=== PATIENT | male | born 1950 | race Caucasian/White ===

== ENCOUNTER 2019-06-28 12:31 | Inpatient (IN) ==
--- NOTE | 2019-06-28 13:22 | PROVIDER DOCUMENTATION ---
HPI-Musculoskeletal Pain/Inj - GENERAL Chief Complaint: Fall Stated Complaint: FALL, SOB, FEVER Time Seen by Provider: 06/28/19 12:49 Source: patient - HX OF PRESENT ILLNESS-MUSKULOSKELTAL Nature of Presenting Problem: THis is a 69 yo male who presents via EMS after falling. He states he was trying to sit down, he missed the chair and fell to the ground, landing on his right hip. He c/o constant post R.thigh pain and R. groin & thigh pain on movement. He was unable to bear weight after the fall. EMS reports fever 101.6 , with a hx of cough for 5-7 days. Pt states family members have been diagnosed with the flu this week. Quality of Pain: reports: cramping, sharp, throbbing Severity in ED: moderate Onset/Duration: just prior to arrival (after fall.) Timing: still present, constant (pain radiates to right groin and entire thigh with movement), other Modifying Factors: improves with: movement, palpation Any recent injury?: No Locality of Occurance: Home Similar Symptoms Previously?: No Recently seen or treated by another doctor?: No - FALL INJURY Location of Pain/Injury: reports: lower extremity Pain Radiation: reports: groin Reason for Fall: reports: other (missed the chair) Symptoms prior to fall:: reports: none Loss of Consciousness: no loss of consciousness Injury Associated Symptoms: reports: unable to bear weight, trouble walking - LOWER EXTREMITY PAIN/INJURY Context / Method of Injury: reports: fell Review of Systems - Adult - REVIEW OF SYSTEMS - ADULT Constitutional: reports: fever Eyes: reports: no symptoms reported Ears, Nose, Mouth & Throat: reports: no symptoms reported Cardiovascular: reports: no symptoms reported. denies: chest pain, edema, heart murmur, irregular heart rate, palpitations, syncope Respiratory: reports: cough. denies: hemoptysis, shortness of breath, wheezing Gastrointestinal: reports: no symptoms reported. denies: abdominal pain, diarrhea, nausea, rectal bleeding, vomiting Genitourinary: reports: no symptoms reported Musculoskeletal: reports: see HPI Integumentary: reports: skin sores/ulcer (abrasion knee.), other (ecchymosis below knee.) Neurological: denies: dizziness/vertigo, slurred speech, syncope Psychiatric: reports: no symptoms reported Endocrine: reports: no symptoms reported Hematologic/Lymphatic: reports: no symptoms reported Allergic/Immunologic: reports: no symptoms reported All Other Systems: Reviewed and Negative Past History - Adult - PAST MEDICAL HISTORY-ADULT Review of Records: reports: Old Records Reviewed, Nursing Assessment Review, Medications Reviewed, Social history reviewed & non-contributory. Major Childhood Illnesses: reports: denies history Cardiovascular: reports: denies history Respiratory: reports: denies history Gastrointestinal: reports: denies history Obstetrical/Gynecological: reports: denies history Genitourinary: reports: denies history Musculoskeletal: reports: denies history Neurological: reports: denies history Endocrine/Immune: reports: denies history Other Conditions: reports: denies history - IMMUNIZATION STATUS Childhood Immunizations: See Nurse Assessment Flu Vaccine: See Nurse Assessment - FAMILY HISTORY Family History: reviewed, not pertinent - SOCIAL HISTORY Smoking: denies Substance Use: none/never Alcohol Use Frequency: never Physical Exam-Injury Related - Physical Exam-Injury Related Initial Vital Signs Reviewed: Yes General Appearance: alert, no apparent distress, cachetic Eyes: PERRL/EOMI. negative: conjuctival exudate, sclera injected, scleral icterus, subconjunctival hemorrhage Head, Ears, Nose, Mouth & Throat: normocephalic/atraumatic, moist mucous membranes Neck: non-tender, supple. negative: C-spine tenderness, trachial deviation, tender lateral, tender midline Respiratory: decreased breath sounds, rhonchi (bases). negative: accessory muscle use, wheezing, pain on inspiration, tenderness Cardiovascular: normal peripheral pulses, regular rate, rhythm. negative: no edema, no JVD, no murmur Abdominal Exam: normal bowel sounds, non tender, soft. negative: no organomegaly, distended Back Exam: no CVA tenderness, no vertebral tenderness Extremity: tenderness (R, thigh TTP) Integumentary: warm/dry, abrasion (R. knee). negative: diaphoresis, rash, warm Progress - PLAN OF CARE/RESULTS Progress/Plan/Lab Results: Vital Signs - 8 hr 06/28/19 12:40 Temperature 100 F H Pulse Rate 100 H Respiratory Rate 24 Blood Pressure 156/84 O2 Sat by Pulse Oximetry 95 06/28/19 12:50 Influenza Screen - Final Nasopharyngeal Laboratory Results - last 24 hr 06/28/19 06/28/19 06/28/19 12:50 12:50 12:50 WBC 8.42 RBC 4.65 L Hgb 13.7 L Hct 40.1 L MCV 86.2 MCH 29.5 MCHC 34.2 RDW Std Deviation 12.4 Plt Count 186 MPV 10.8 H Sodium 122 L Potassium 5.3 H Chloride 84 L Carbon Dioxide 19 L Anion Gap 19 BUN 20 Creatinine 1.9 H Estimated GFR/1.73 m2 35 BUN/Creatinine Ratio 11 Glucose 95 Calculated Osmolality 248 Calcium 9.7 Magnesium 1.6 Total Bilirubin 0.44 AST 48 H ALT 31 Alkaline Phosphatase 48 Total Protein 9.0 H Albumin 4.5 Globulin 4.5 Albumin/Globulin Ratio 1.0 Plasma Lactate 2.5 H Orders Category Date Time Status Cardiac Monitoring NOW Care 06/28/19 14:30 Active Marcus Cath Insertion ORDERED Care 06/28/19 14:44 Active IV Insertion NOW Care 06/28/19 14:30 Active NEWS Score 2-4:Order NEWS Lactate Series NOW Care 06/28/19 13:03 Active Notify Provider of NEWS Score NOW Care 06/28/19 14:30 Active CHEST-1 VIEW [RAD] Routine Exams 06/29/19 06:00 Ordered FEMUR MIN 2 VIEWS RIGHT [RAD] Stat Exams 06/28/19 13:35 Completed HIP W/PELVIS BILAT 2 VIEWS [RAD] Stat Exams 06/28/19 13:35 Completed BLOOD CULTURE [BLDCUL] Stat Lab 06/28/19 14:30 Uncollected CBC WITH NO DIFF [HEME] Stat Lab 06/28/19 12:50 Completed CK PROFILE [SP CHEM] Stat Lab 06/28/19 12:50 Received COMPREHENSIVE METABOLIC PANEL [CHEM] Stat Lab 06/28/19 12:50 Completed INFLUENZA SCREEN A/B Stat Lab 06/28/19 12:50 Completed LACTATE, PLASMA [CHEM] Lab 06/28/19 16:15 Uncollected LACTATE, PLASMA [CHEM] Lab 06/28/19 19:15 Uncollected LACTATE, PLASMA [CHEM] Q3H Lab 06/28/19 12:50 Completed MAGNESIUM [CHEM] Stat Lab 06/28/19 12:50 Completed PROTIME WITH INR [COAG] Stat Lab 06/28/19 12:50 Received PTT [COAG] Stat Lab 06/28/19 12:50 Received TROPONIN T HIGH SENSITIVITY Stat Lab 06/28/19 12:50 Received 0.9% Sodium Chloride Inj [Ns] 1,000 ml Med 06/28/19 14:45 Active IV 75 mls/hr 0.9% Sodium Chloride Inj [Ns] 1,000 ml Med 06/28/19 14:43 Active IV 999 mls/hr O2 Per Protocol Stat Oth 06/28/19 14:30 Completed EKG [EKG] Stat Ther 06/28/19 13:11 Ordered Transfer/Admit Order [TRANSFER] Routine Transfer 06/28/19 14:53 Ordered Result Diagrams: 06/28/19 12:50 06/28/19 12:50 - XRAY 1 XRAY Study: Hip (EXAM: HIP W/PELVIS BILAT 2 VIEWS 06/28/2019 HISTORY: fall, pain TECHNIQUE: AP pelvis and bilateral hips four views COMMENT: There is a fracture of the right femoral neck. There is an apparent bone island in the inferior left femoral head. There is generalized osteopenia. IMPRESSION: Fracture right femoral neck. Electronically signed by Armaan Felix 06/28/2019 2:26 PM) 2 XRAY Study: Femur (EXAM: FEMUR MIN 2 VIEWS RIGHT 06/28/2019 HISTORY: fall, pain TECHNIQUE: Right femur two views COMMENT: There is extensive arteriosclerosis. There is no evidence of fracture in the distal femur. IMPRESSION: No additional bony abnormality. Electronically signed by Armaan Felix 06/28/2019 2:27 PM) - CONSULTS/PCP/HOSPITALIST Notification #1 *Consult/PCP/Hospitalist*: Dr Kern Time Discussed: 14:48 (Admit to hospitalist and consult ortho) Reason/Comments: R. femoral neck fracture Consult Disposition: other #2 Consult: NELLA Dupree for hospitalists Time Discussed: 14:51 Consult Disposition: Will see in ED, Admit Departure - Departure Date of Disposition Decision: 06/28/19 Time of Disposition Decision: 14:52 DIAGNOSIS: Influenza A, KEMAR (acute kidney injury), Fracture of femoral neck, right, Hyponatremia Disposition: ADMITTED INPATIENT 09 Certified Medical Emergency: Emergent Condition: Stable Referrals and Follow-Ups: None,PCP [Primary Care Provider] - - Critical Care Note This patient required my direct & personal management of CC.: No Attestation - Physician/ BANG Attestation Patient care was provided by Advanced Practice Provider:: Yes Advanced Practice Provider:: Slaten,Jaky J. Advanced Practice Provider documentation review:: The Mid-level provider doc umentation, treatment plan and medical decision making was reviewed by the physician who agrees with all treatment and medical decision making by the MLP. The physician spent face to face time with patient:: No Advanced Practice Provider documentation review:: Supervising physician onsite and consulted in the evaluation and care of this patient. The physician did not have a face to face encounter with the patient.
[2019-06-28 14:06] LABS: HEMATOCRIT 40.1 % (42.0-52.0); HEMOGLOBIN 13.7 g/dL (14.0-18.0); MCH 29.5 PG (27-31); MCHC 34.2 g/dL (33-37); MCV 86.2 FL (81-99); MPV 10.8 FL (7.4-10.4); RBC 4.65 XMIL (4.7-6.1); RDW 12.4 % (11.5-14.5); WBC 8.42 X1000 (4.8-10.8)
[2019-06-28 14:21] LABS: ALBUMIN 4.5 g/dL (3.5-5.0); CALCIUM 9.7 mg/dL (8.8-10.2); CREATININE 1.9 mg/dL (0.7-1.2); MAGNESIUM 1.6 mg/dL (1.5-2.7); POTASSIUM 5.3 mmol/L (3.5-5.1); TOTAL BILIRUBIN 0.44 mg/dL (0.20-1.00)
--- NOTE | 2019-06-28 14:28 | Diag Imaging Result Doc PS360 ---
EXAM: HIP W/PELVIS BILAT 2 VIEWS 06/28/2019 HISTORY: fall, pain TECHNIQUE: AP pelvis and bilateral hips four views COMMENT: There is a fracture of the right femoral neck. There is an apparent bone island in the inferior left femoral head. There is generalized osteopenia. IMPRESSION: Fracture right femoral neck. Electronically signed by Armaan Felix 06/28/2019 2:26 PM
--- NOTE | 2019-06-28 14:29 | Diag Imaging Result Doc PS360 ---
EXAM: FEMUR MIN 2 VIEWS RIGHT 06/28/2019 HISTORY: fall, pain TECHNIQUE: Right femur two views COMMENT: There is extensive arteriosclerosis. There is no evidence of fracture in the distal femur. IMPRESSION: No additional bony abnormality. Electronically signed by Armaan Felix 06/28/2019 2:27 PM
[2019-06-28] MEDS ORDERED: NS 1,000 ML IV ONE (14:43)
--- NOTE | 2019-06-28 14:45 | ED EKG INTERP ---
This chart was entered by Mandie Vail Scribe, acting as scribe for Sera Bellamy MD. EKG Interpretation - EKG Time of EKG reading by physician:: 14:28 EKG Read and Signed by:: Sera Bellamy EKG Interpretation (*Must complete 3 of following elements*): Abnormal Rate: 90 Rhythm: NSR [place]: normal [place] Interval: normal Comments: nonspecific ST abnormality Attestation - Physician/ BANG Attestation Patient care was provided by Advanced Practice Provider:: Yes Advanced Practice Provider:: Jaky Reina Advanced Practice Provider documentation review:: The Mid-level provider documentation, treatment plan and medical decision making was reviewed by the physician who agrees with all treatment and medical decision making by the MLP. The physician spent face to face time with patient:: No Advanced Practice Provider documentation review:: Supervising physician onsite and consulted in the evaluation and care of this patient. The physician did not have a face to face encounter with the patient. This chart was documented by the indicated scribe, (Mandie Vail Scribe) and accurately reflects the services I performed and decisions made by me, Sera Bellamy MD, as attested by the provider's signature.
[2019-06-28 15:09] LABS: INR 1.07; PROTIME 14.1 Seconds (11.0-16.0)
[2019-06-28 15:10] LABS: PTT 32.8 Seconds (22.3-41.8)
--- NOTE | 2019-06-28 15:15 | EKG Report ---
Test Performed on : 06/28/2019 2:28:26 PM Test Reason : SOB Blood Pressure : / mmHG Vent. Rate : 090 BPM Atrial Rate : 090 BPM P-R Int : 138 ms QRS Dur : 076 ms QT Int : 330 ms P-R-T Axes : 112 045 063 degrees QTc Int : 403 ms Normal sinus rhythm. Nonspecific ST abnormality Abnormal ECG No previous ECGs available Unconfirmed Result
[2019-06-28] MEDS ORDERED: ZOFRAN IV PRN (15:52)
[2019-06-28] MEDS ORDERED: TYLENOL PO PRN (15:52)
[2019-06-28 15:58] LABS: URINE SOURCE CATH
[2019-06-28 16:01] LABS: BILIRUBIN URINE NEGATIVE (NEGATIVE); BLOOD URINE MODERATE (NEGATIVE); COLOR YELLOW; GLUCOSE URINE 500 mg/dL (NEGATIVE); KETONE URINE 10 mg/dL (NEGATIVE); LEUKOCYTES URINE NEGATIVE (NEGATIVE); NITRITE URINE NEGATIVE (NEGATIVE); PH URINE 5.5; PROTEIN URINE 200 mg/dL (NEGATIVE); SP GRAVITY URINE 1.017; TURBIDITY URINE HAZY (CLEAR); UROBILINOGEN URINE NORMAL (NORMAL)
[2019-06-28] MEDS ORDERED: NS 500 ML IV ONE (16:06)
[2019-06-28 16:22] LABS: UR EPITHELIAL CELLS <10 /HPF (<10); URINE BACTERIA NEGATIVE /HPF; URINE CASTS GRANULAR PRESENT; URINE CRYSTALS NONE SEEN; URINE RBC <10 /HPF (<10); URINE SMALL ROUND CELLS NONE SEEN; URINE WBC <10 /HPF (<10); URINE YEAST NONE SEEN
[2019-06-28] MEDS ORDERED: KEFZOL 2 GM/D5W 2 GM/50 ML IVPB IV ONE (16:51)
[2019-06-28 17:14] LABS: INR 1.18; PROTIME 15.2 Seconds (11.0-16.0)
--- NOTE | 2019-06-28 17:17 | ORTHOPAEDICS CONSULTATION ---
DATE: 06/28/2019 CHIEF COMPLAINT: Right hip pain after fall. HISTORY OF PRESENT ILLNESS: This is a 69-year-old male who presented to the emergency department from EMS due to a fall and right hip pain. He reports that he was trying to sit down in a chair, missed the chair, and landed on his hip. He was unable to bear weight after the fall. He reported having a fever, not feeling good for roughly a week. Family members have been diagnosed with the flu. Flu testing from the emergency department does show positive flu. Orthopedist was consulted to come see the patient. PAST MEDICAL HISTORY: Includes restless legs, hypertension, GERD, hyperlipidemia. The patient does report only having 1 kidney. PAST SURGICAL HISTORY: Patient is unable to recall at this time. REVIEW OF SYSTEMS: Twelve point review of systems were performed. Pertinent positives listed in the HPI. PHYSICAL EXAMINATION: Vital Signs: Temperature 100.0 degrees, respiratory rate 24, blood pressure 156/84, oxygen saturation 95% on room air, pulse rate 100. General: The patient is awake and somewhat confused, lying in the bed. HEENT: Head is atraumatic, normocephalic. Eyes equal, round. Neck: Supple. Chest: There is equal chest expansion, rise and fall. Cardiovascular: There is some tachycardia. Abdomen: Soft, nontender. Extremities: Lower extremity exam: Right lower extremity, there is some shortening about the right lower extremity. There is some swelling about the right hip. There is tenderness to the anterior joint line of the hip. There is good sensation. The patient can move his foot up and down with dorsi and plantar flexion without difficulty. There are good pedal pulses that are bounding. There is good capillary refill in the toes. MEDICATIONS: Requip 0.5 mg at bedtime, tizanidine 4 mg t.i.d. p.r.n., Lotrel 5/40 daily, gabapentin 600 mg t.i.d., Mobic 15 mg daily, omeprazole 40 mg daily, pravastatin 40 mg daily. SOCIAL HISTORY: The patient denies smoking, alcohol, or drug use. LABS: White blood cells 8.42, red blood cells 4.65, hemoglobin 13.7, hematocrit 40.1. INR 1.07. Sodium 122, potassium 5.3, chloride 84, carbon dioxide 19, BUN 20, creatinine 1.9. Troponin 21. Plasma is 2.5. Urine shows glucose of 500 and moderate blood with positive ketones. ASSESSMENT: Right femoral neck fracture. PLAN: We plan to do a bipolar hip replacement on Mr. Powell tomorrow morning if he is cleared medically. We went over risks and benefits of surgery. The patient agrees with this plan. Dr. Kern will come by and see the patient before surgery. He is to be NPO at midnight. Dictated by NELLA Craft for Arun Kern MD cc: NELLA Craft MD
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
[2019-06-28] MEDS: TAMIFLU PO SCH ×2 (17:42→22:09)
[2019-06-28] MEDS: NS 1,000 ML IV SCH (17:43)
[2019-06-28] MEDS ORDERED: TAMIFLU PO SCH (21:00)
[2019-06-29 06:49] LABS: BASO# 0.01 X1000 (0.0-0.2); BASO% 0.1 % (0.0-0.8); HEMATOCRIT 38.7 % (42.0-52.0); HEMOGLOBIN 13.7 g/dL (14.0-18.0); LYMPH# 0.94 X1000 (1.2-3.4); LYMPH% 11.3 % (20.5-51.1); MCH 30.5 PG (27-31); MCHC 35.4 g/dL (33-37); MCV 86.2 FL (81-99); MONO# 1.42 X1000 (0.11-0.59); MONO% 17.1 % (1.7-9.3); MPV 10.4 FL (7.4-10.4); PLT 150 X1000 (130-400); RBC 4.49 XMIL (4.7-6.1); RDW 12.2 % (11.5-14.5)
[2019-06-29 07:23] LABS: ALBUMIN 4.1 g/dL (3.5-5.0); CALCIUM 9.3 mg/dL (8.8-10.2); CREATININE 1.2 mg/dL (0.7-1.2); MAGNESIUM 1.7 mg/dL (1.5-2.7); POTASSIUM 4.2 mmol/L (3.5-5.1); TOTAL BILIRUBIN 0.45 mg/dL (0.20-1.00); TOTAL PROTEIN 8.3 g/dL (6.3-8.3)
[2019-06-29 07:24] LABS: LYMPHS 6 % (21-51); MONO 10 % (1-9); SEGS 74 % (42-75)
--- NOTE | 2019-06-29 07:30 | Diag Imaging Result Doc PS360 ---
EXAM: CHEST-1 VIEW INDICATION: cough, fever TECHNIQUE: One view COMPARISON: 12/15/2018 FINDINGS: There is evidence of prior granulomatous disease, stable. The lungs are grossly clear. There is no discrete pleural fluid collection or pneumothorax. The cardiomediastinal silhouette and central vasculature are grossly unremarkable. IMPRESSION: No evidence of acute pathology by plain radiograph. Electronically signed by Chacorta Paredes 06/29/2019 7:28 AM
[2019-06-29] MEDS ORDERED: SAMSCA PO ONE (09:08)
[2019-06-29] MEDS ORDERED: DILAUDID IV PRN (09:33)
[2019-06-29] MEDS: TAMIFLU PO SCH ×2 (09:39→20:42)
--- NOTE | 2019-06-29 10:32 | PROGRESS NOTE ---
DATE: 06/29/2019 SUBJECTIVE: Patient is still complaining of pain in the right hip. Denies any other complaints. OBJECTIVE: Vital Signs: Temperature 98.3 degrees, heart rate 86, respiratory rate 16, blood pressure 143/69, O2 saturation 97% on room. General examination: This is a chronically ill- looking, 69-year-old male, lying in bed, in no acute distress. Cardiovascular Exam: S1, S2 heard. No murmurs, gallops, or rubs. Regular rate and rhythm. Respiratory Exam: Clear bilaterally to auscultation. No work of breathing or using accessory muscles. Abdomen: Soft, nontender to palpation. Bowel sounds present. No organomegaly. Extremities: No clubbing, cyanosis, or edema. Peripheral pulses present in both legs. Neurological Exam: Patient is alert and oriented x3. Moves 4 extremities. LABORATORY DATA: Reviewed. ASSESSMENT AND PLAN: 1. Status post fall with right femoral neck fracture. The patient has been placed on n.p.o for surgery today. Orthopedics following this patient. 2. Influenza A positive. Will provide Tamiflu for 5 days oral twice daily. 3. Acute kidney injury. The patient has a solitary kidney in the left side. Renal function is completely normal today. I think that has been related to dehydration. 4. Hyponatremia most likely secondary to beer potomania. The patient has been provided with IV fluids and I will provide 1 dose of Samsca. Will check BMP tomorrow. 5. Hypertension. Blood pressure is under control. Will continue with same management. 6. Restless legs syndrome. We will restart home medication as soon as the patient is back from surgery. 7. Disposition. Will continue to follow up lead from Orthopedics. cc: Rafael Capellan MD
[2019-06-29] MEDS ORDERED: DURAMORPH ONE (11:25)
[2019-06-29] MEDS ORDERED: SODIUM CHLORIDE 0.9% ONE (11:26)
[2019-06-29] MEDS ORDERED: CYKLOKAPRON 1,000 MG/NS 1,000 MG/100 ML IVPB ONE (11:26)
[2019-06-29] MEDS ORDERED: TORADOL ONE (11:26)
[2019-06-29] MEDS ORDERED: MARCAINE 0.25% PF ONE (11:26)
[2019-06-29] MEDS ORDERED: EXPAREL 1.3% ONE (11:26)
[2019-06-29] MEDS ORDERED: NEOSPORIN G.U. IRRIGANT ONE (11:27)
[2019-06-29] MEDS ORDERED: KETAMINE ONE (11:44)
[2019-06-29] MEDS ORDERED: VERSED ONE (11:44)
[2019-06-29] MEDS ORDERED: FENTANYL ONE (11:44)
[2019-06-29] MEDS ORDERED: KEFZOL 1 GM/D5W 2 GM/100 ML IVPB ONE (11:50)
[2019-06-29] MEDS ORDERED: DIPRIVAN 1% ONE (12:15)
[2019-06-29] MEDS ORDERED: ZOFRAN ONE (12:33)
[2019-06-29] MEDS ORDERED: OFIRMEV 1000 MG/ISOTONIC SOLN 1,000 MG/100 ML BOTTLE ONE (12:33)
[2019-06-29] MEDS ORDERED: DECADRON ONE (12:33)
[2019-06-29] MEDS ORDERED: XYLOCAINE-MPF 2% ONE (12:33)
[2019-06-29] MEDS ORDERED: ULTRAM PO PRN (14:35)
--- NOTE | 2019-06-29 14:40 | OPERATIVE NOTE ---
PROCEDURE DATE: 06/29/2019 PREOPERATIVE DIAGNOSIS: Right displaced femoral neck fracture. POSTOPERATIVE DIAGNOSIS: Right displaced femoral neck fracture. PROCEDURE: Right bipolar hemiarthroplasty using a DePuy size 7 high offset stem with a +1.5 neck length, 48 mm bipolar head. ANESTHESIA: Spinal. SURGEON: Arun Kern MD. SPINE SPECIALIST: Jaky CARMEN is present throughout the case. The communications assistant was critical for successful completion of case. BLOOD LOSS: Minimal. DESCRIPTION OF PROCEDURE: Patient brought to the operative suite and placed in supine position. After successful administration of spinal anesthesia, the patient was placed on the OSI table in the usual position for right hip. The right hip was prepped and draped in usual sterile fashion. A longitudinal incision was made beginning 3 cm distal and 3 cm lateral to the anterior superior iliac spine, extending distally and slightly laterally 8 cm, dissected sharply through skin and subcutaneous tissue, down tensor fascia. Tensor fascia was incised and dissected bluntly down deep tensor fascia. The tensor fascia was incised. The circumflex vessels electrocauterized exposing the anterior capsule. T capsulotomy was performed exposing the femoral neck. Femoral neck cut was made with oscillating saw. The femoral head was removed with power corkscrew was measured 48 mm. A 48 mm trial was found to be excellent fit. The trial was then removed. Attention was directed to the femur was externally rotated, extended, adducted, and elevated out of the wound with the hook on the OSI bed. The lateral neck was rongeured. The canal was serially broached to a size 7. A size 7 high offset +1.5 inch neck length was trialed with a 48 mm bipolar head was found to be excellent fit and fill of the stem, offset and leg length. The trial was then removed. Definitive stem was seated onto the femur and then the bipolar head with the +1.5, 28 mm head was placed onto the Elizondo taper and then the hip was reduced and it was again found to be in excellent position. The anterior capsule was repaired with 0 V-Loc. The hip was copiously irrigated with normal saline containing irrigant and Vashe irrigation. The hip was then copiously infiltrated with Exparel, including the posterior capsule, anterior capsule, intermuscular, and subcutaneous tissue. The tensor fascia was closed with 0 V-Loc. Skin edges approximated with 2-0 Vicryl and closed with 4-0 Monocryl and Prineo dressing. The patient tolerated the procedure well without complications. At the end of the procedure, all counts correct x2. The patient was transferred to the recovery room in stable condition. cc: Arun Kern MD [facility]
[2019-06-29] MEDS ORDERED: ZOFRAN ODT PO PRN (14:45)
[2019-06-29] MEDS ORDERED: ZOFRAN IV PRN (14:45)
[2019-06-29] MEDS ORDERED: MORPHINE IV PRN ×3 (14:45)
[2019-06-29] MEDS: NS 1,000 ML IV SCH ×2 (14:45→20:50)
[2019-06-29] MEDS ORDERED: MILK OF MAGNESIA PO PRN (14:45)
[2019-06-29] MEDS ORDERED: OXY IR PO PRN ×2 (14:45)
[2019-06-29] MEDS: TYLENOL PO SCH (18:01)
[2019-06-29] MEDS: COLACE PO SCH (20:42)
[2019-06-29] MEDS: KEFZOL 1 GM/D5W 1 GM/50 ML IVPB IV SCH (20:49)
[2019-06-30] MEDS: TYLENOL PO SCH ×5 (01:44→18:07)
[2019-06-30] MEDS: NS 1,000 ML IV SCH ×3 (01:44→13:41)
[2019-06-30] MEDS: LOVENOX SUBQ SCH (05:31)
[2019-06-30] MEDS: KEFZOL 1 GM/D5W 1 GM/50 ML IVPB IV SCH (05:31)
[2019-06-30 06:59] LABS: HEMATOCRIT 34.8 % (42.0-52.0); HEMOGLOBIN 12.2 g/dL (14.0-18.0); MCH 30.7 PG (27-31); MCHC 35.1 g/dL (33-37); MCV 87.4 FL (81-99); MPV 10.9 FL (7.4-10.4); RBC 3.98 XMIL (4.7-6.1); RDW 12.6 % (11.5-14.5); WBC 13.78 X1000 (4.8-10.8)
[2019-06-30 07:45] LABS: ALBUMIN 3.9 g/dL (3.5-5.0); CALCIUM 9.3 mg/dL (8.8-10.2); CREATININE 1.4 mg/dL (0.7-1.2); PHOSPHORUS 3.2 mg/dL (2.7-4.5); POTASSIUM 4.1 mmol/L (3.5-5.1)
[2019-06-30] MEDS: PEPCID PO SCH (08:53)
[2019-06-30] MEDS: COLACE PO SCH ×2 (08:53→22:39)
[2019-06-30] MEDS: TAMIFLU PO SCH ×2 (08:53→22:39)
--- NOTE | 2019-06-30 12:59 | PROGRESS NOTE ---
DATE: 06/30/2019 INTERVAL HISTORY: No acute events overnight. No new complaints. Pain well controlled. REVIEW OF SYSTEMS: Twelve point review of systems negative except as per interval history. LABS: WBC 13.7, hemoglobin 12.2, hematocrit 34.8, platelets 125,000. Sodium 135, potassium 4.1, BUN 20, creatinine 1.4, glucose 134. VITALS: T-max 98.7 degrees, pulse 53, respirations 20, blood pressure 149/57, O2 saturation 98% on 2 L by nasal cannula. IMAGING: Chest x-ray unremarkable. PHYSICAL EXAMINATION: General: No acute distress. Vitals: As above. HEENT: Normocephalic, atraumatic. Moist mucous membranes. No cervical adenopathy. Cardiovascular: Slightly bradycardic but regular. No murmurs noted. Pulmonary: Clear to auscultation bilaterally. No wheezing, rales, or rhonchi noted. Abdomen: Soft, nontender, nondistended. Bowel sounds slightly decreased but present. Extremities: Peripheral pulses intact. No clubbing or cyanosis. Right hip incision clean, dry, intact. Neurologic: Cranial nerves grossly intact. No focal deficits identified . Psychiatric: Normal mood and affect. Awake, alert, cooperative. : Marcus catheter in place. ASSESSMENT AND PLAN: 1. Fall with right femoral neck fracture. The patient is status post surgical repair yesterday. Doing well postop. Pain well controlled. Will likely start working with physical therapy today. Otherwise, pretty stable. 2. Influenza A. Patient on Tamiflu. Symptoms are actually pretty minimal at this point. 3. Acute kidney injury on likely chronic kidney disease 3. The patient with solitary kidney. Kidney function improved from admission. We will continue to monitor labs. 4. Hyponatremia, much improved after some gentle IV fluids and 1 dose of Sam[place]. Continue gentle hydration and monitor. 5. Hypertension. Patient off his home amlodipine, benazepril currently. Blood pressure is only mildly elevated. We will monitor him for 1 more day given acute kidney injury, but will likely restart those tomorrow if blood pressure remains good and kidney function remains stable. 6. Restless legs syndrome. Continue home medications. 7. Disposition. Likely to rehab Tuesday if no further issues develop.
[2019-07-01] MEDS: TYLENOL PO SCH ×4 (00:30→21:03)
[2019-07-01] MEDS: NS 1,000 ML IV SCH ×2 (03:41→17:07)
[2019-07-01] MEDS: LOVENOX SUBQ SCH (06:00)
[2019-07-01 07:03] LABS: HEMATOCRIT 29.8 % (42.0-52.0); HEMOGLOBIN 10.2 g/dL (14.0-18.0); MCH 30.4 PG (27-31); MCHC 34.2 g/dL (33-37); MPV 11.1 FL (7.4-10.4); RBC 3.35 XMIL (4.7-6.1); RDW 12.5 % (11.5-14.5); WBC 8.6 X1000 (4.8-10.8)
[2019-07-01 07:21] LABS: AGAP 12; ALBUMIN 3.3 g/dL (3.5-5.0); BUN 18 mg/dL (8-22); CALCIUM 8.7 mg/dL (8.8-10.2); CHLORIDE 102 mmol/L (98-107); COSMO 276; CREATININE 1.1 mg/dL (0.7-1.2); ESTIMATED GFR > 60; GLUCOSE 95 mg/dL (70-104); PHOSPHORUS 2.7 mg/dL (2.7-4.5); SODIUM 137 mmol/L (136-145); TCO2 23 mmol/L (25-35)
[2019-07-01] MEDS: PEPCID PO SCH (08:02)
[2019-07-01] MEDS: TAMIFLU PO SCH ×2 (08:02→21:04)
[2019-07-01] MEDS: COLACE PO SCH ×2 (08:02→21:03)
[2019-07-01] MEDS: NEURONTIN PO SCH ×2 (13:18→21:03)
--- NOTE | 2019-07-01 13:43 | PROGRESS NOTE ---
DATE: 07/01/2019 INTERVAL HISTORY: Patient doing well. No new complaints. Pain well controlled. Remains afebrile. REVIEW OF SYSTEMS: Twelve point review of systems negative except as per interval history. LABS: WBC 8.6, hemoglobin 10.2, hematocrit 29.8, platelets 110,000. Sodium 137, potassium 4, BUN 18, creatinine 1.1, glucose 95. VITALS: T-max 98.8 degrees, pulse 65, respirations 16, blood pressure 157/59. O2 saturation 98% on room air. PHYSICAL EXAMINATION: General: No acute distress. Vitals: As above. HEENT: Normocephalic, atraumatic. Moist mucous membranes. No cervical adenopathy. Cardiovascular: Regular rate and rhythm. No murmurs noted. Pulmonary: Clear to auscultation bilaterally. No wheezing, rales, or rhonchi. Abdomen: Soft, nontender, nondistended. Bowel sounds remain slightly decreased but present. Extremities: Peripheral pulses intact. No clubbing, cyanosis. Right hip incision with some surrounding bruising, but the incision itself is clean, dry and intact. Neurologic: Cranial nerves grossly intact. No focal deficits identified. Psychiatric: Normal mood and affect. Awake, alert, cooperative. ASSESSMENT AND PLAN: 1. Fall with right femoral neck fracture. The patient is status post surgical repair on 06/28. Doing well postop with well-controlled pain. If there are no further issues, then hopefully will be going to rehab tomorrow. 2. Influenza A. Patient on Tamiflu. Symptoms are minimal at this point. 3. Acute kidney injury on likely chronic kidney disease stage 2 to 3. The patient with solitary kidney. Kidney function has been a little bit labile but improved this morning. Monitor labs. 4. Hyponatremia. Remains improved. Monitor labs. 5. Hypertension. Held patient's home blood pressure medications postop because of normal to slightly low blood pressures. They do appear to be trending up overall, although still acceptable. We will go and restart his home amlodipine but hold the benazepril in light of his resolving acute kidney injury. 6. Restless legs syndrome. Continue home medication. 7. Disposition. Likely to rehab tomorrow if he continues to do well.
[2019-07-01] MEDS ORDERED: REQUIP PO SCH (21:00)
[2019-07-02] MEDS: TYLENOL PO SCH ×3 (03:03→14:11)
[2019-07-02] MEDS: LOVENOX SUBQ SCH (05:59)
[2019-07-02] MEDS: NS 1,000 ML IV SCH (05:59)
[2019-07-02 07:00] LABS: HEMATOCRIT 32.6 % (42.0-52.0); HEMOGLOBIN 10.7 g/dL (14.0-18.0); MCH 29.5 PG (27-31); MCHC 32.8 g/dL (33-37); MCV 89.8 FL (81-99); MPV 11.3 FL (7.4-10.4); RBC 3.63 XMIL (4.7-6.1); RDW 12.5 % (11.5-14.5); WBC 8.03 X1000 (4.8-10.8)
[2019-07-02] MEDS ORDERED: PRILOSEC PO SCH (07:00)
[2019-07-02 07:26] LABS: AGAP 12; BUN 14 mg/dL (8-22); CALCIUM 8.7 mg/dL (8.8-10.2); CHLORIDE 102 mmol/L (98-107); COSMO 274; CREATININE 0.9 mg/dL (0.7-1.2); ESTIMATED GFR > 60; GLUCOSE 86 mg/dL (70-104); PHOSPHORUS 2.3 mg/dL (2.7-4.5); POTASSIUM 4.2 mmol/L (3.5-5.1); SODIUM 137 mmol/L (136-145); TCO2 23 mmol/L (25-35)
[2019-07-02] MEDS ORDERED: NORVASC PO SCH (09:00)
[2019-07-02] MEDS ORDERED: PRAVACHOL PO SCH (09:00)
[2019-07-02] MEDS ORDERED: LOTENSIN PO SCH (09:00)
[2019-07-02] MEDS: NEURONTIN PO SCH ×2 (09:51→14:11)
[2019-07-02] MEDS: COLACE PO SCH (09:51)
[2019-07-02] MEDS: TAMIFLU PO SCH (09:51)
--- NOTE | 2019-07-02 10:40 | DISCHARGE SUMMARY ---
ADMISSION DATE: 06/28/2019 DISCHARGE DATE: 07/02/2019 ADMISSION DIAGNOSES: 1. Status post fall. 2. Flu A positive. 3. Acute kidney injury on probable chronic kidney disease. 4. Hyponatremia, possibly secondary to his beer potomania. 5. Hypertension. 6. Hyperlipidemia. 7. Restless leg syndrome. 8. Anion gap metabolic acidosis. DISCHARGE DIAGNOSES: 1. Fall with right femoral neck fracture status post surgical repair on June 28. 2. Influenza A on Tamiflu. 3. 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 4. Hyponatremia. 5. Hypertension. 6. Restless leg syndrome. CONSULTATION: Dr. Kern. SURGERIES OR PROCEDURES 06/29/2019: Right bipolar hemiarthroplasty secondary to right displaced femoral neck fracture. No complications noted. HOSPITAL COURSE: Mr. Lazarus Powell is a 69-year-old male, who came in after having a fall and landed on his right hip, and was found to have a right displaced femoral neck fracture, and on the had surgical repair by Dr. Kern. He was also positive for influenza A, was started on Tamiflu, given some IV fluids. He had acute kidney injury on CKD stage II or III, which resolved with fluids. He does have solitary kidney on the left. Hyponatremia, resolved. Hypertension was stable. The anion gap metabolic acidosis also resolved. Now he is stable for discharge to [facility]. DISCHARGE VITAL SIGNS: Temperature 98.4 degrees, heart rate 87, respiratory rate 18, blood pressure 159/69, O2 saturation 97% on room air. DISCHARGE LAB DATA: White blood cells 8000, hemoglobin 10, hematocrit 32, platelet count 110. Sodium 137, potassium 4.2. BUN 14, creatinine 0.9, glucose 86, calcium 8.7, phosphorus 2.3, albumin 3.0. MICROBIOLOGY: Blood cultures negative. Influenza A positive. IMAGING: On the , he had femoral x-ray on the right. There is actually at that time no evidence of fracture, but then there was a hip with pelvic x-ray performed on the same day that did show a fracture of the right femoral neck. Chest x-ray on the : No acute findings. EKG on the : Normal sinus rhythm, rate 90, QTc was 403. DISCHARGE MEDICATIONS: 1. Tylenol 650 mg p.o. q. 6 hours p.r.n. 2. Neurontin 600 mg p.o. t.i.d. 3. Colace 100 mg p.o. twice daily. 4. Oxycodone immediate release 5 mg p.o. every 3 hours p.r.n. 5. Prilosec 40 mg p.o. daily. 6. Pravastatin 40 mg p.o. daily. 7. Amlodipine besylate with benazepril, also known as Lotrel 5-40, one tab p.o. daily. 8. Requip 0.5 mg p.o. nightly. DISCHARGE FOLLOWUPS: 1. Leanne Sheets. 2. Favian Kern. DISCHARGE ACTIVITY: No driving until directed by MD. No driving while taking pain medication. DISCHARGE DIET: Regular. DISCHARGE INSTRUCTIONS: If her condition changes, contact physician and/or return to the emergency department. Changes may include, but are not limited to shortness of breath, increased fatigue, excessive bleeding, unexplained weight loss or gain, unmanageable pain, signs or symptoms of infection. Wound care: Keep incision clean and dry. No submersion of the incision in water. Do not remove clear dressing over your incision. Dr. Kern will remove it after your followup appointment. Notify MD if fever, if you have one over 101 or above, foul smelling drainage from the incision, shortness of breath, chest pain, pain or swelling in your legs. DISCHARGE DISPOSITION: [facility]. Dictated by NELLA Grande for Geovany Rawls MD cc: NELLA Grande
[2019-07-02 12:05] VITALS: BP 138/57
== END 2019-07-02 14:52 | disposition home health service (06) | DRG 470 ==
LOC: ED 12:31 → 4N 15:07 → SUATTDRO 15:07
PROVIDERS: ATTEND Internal Medicine